=== PATIENT | female | born 1945 | race Caucasian/White ===

== ENCOUNTER 2020-11-21 14:32 | Observation (INO) ==
[2020-11-21] MEDS ORDERED: 0.9 % Sodium Chloride 1,000 ML IVC SCH ×2 (15:45→18:30)
[2020-11-21 15:54] LABS: Albumin 4.4 g/dL (3.5-5.7); Albumin/Globulin Ratio 1.5 (1.1-2.2); Bilirubin,Total 0.5 mg/dL (0.3-1.0); Calcium 10.3 mg/dL (8.6-10.3); Potassium 6.3 mEq/L (3.5-5.1); Total Protein 7.4 g/dL (6.4-8.9)
[2020-11-21 15:59] LABS: Basophils # 0.1 K/mcL (0.0-0.2); Basophils % 0.6 %; Eosinophils # 0.2 K/mcL (0.0-0.6); Eosinophils % 2.6 %; Hematocrit 34.4 % (35.3-44.9); Immature Granulocytes % 0.3 % (0-4); Lymphocytes # 1.9 K/mcL (0.6-4.6); Lymphocytes % 24.4 %; Mean Corpuscular Hemoglobin 29.8 pg (28.0-33.3); Mean Corpuscular Volume 93.2 fL (83.0-100.0); Monocytes # 0.6 K/mcL (0.0-1.3); Platelet Count 277 K/mcL (140-400); Red Blood Count 3.69 M/mcL (3.82-4.97); Red Cell Distribution Width 12.3 % (11.5-14.5); Segmented Neutrophils % 64.1 %; White Blood Count 7.8 K/mcL (4.3-11.1)
[2020-11-21 16:03] LABS: INR 1.1; Prothrombin Time 11.8 Seconds (9.4-12.1)
[2020-11-21 16:06] LABS: Bilirubin,Urine Negative (Negative); Blood,Urine Negative (Negative); Clarity,Urine Clear (Clear); Color,Urine Yellow (Yellow); Glucose,Urine (UA) Normal (Normal); Ketones,Urine Negative (Negative); Leukocyte Esterase,Urine Negative (Negative); Nitrite,Urine Negative (Negative); Protein,Urine Negative (Neg-Trace); Specific Gravity,Urine 1.015 (1.010-1.025); Urobilinogen,Urine Normal (Normal)
[2020-11-21 16:22] LABS: VBG HCO3 15 mEq/L (21-27); VBG PCO2 31 mmHg (41-51); VBG PO2 78 mmHg (25-50)
[2020-11-21] MEDS ORDERED: levoFLOXacin 750 MG/150 ML 750 MG/150 ML BAG IVPB ONE (17:16)
[2020-11-21] MEDS ORDERED: *HR* Dextrose 50 % in Water (Syg) 50 ML SYRINGE IVP ONE (17:18)
[2020-11-21] MEDS ORDERED: Insulin Human Regular 10 UNIT in 0.9 % Sodium Chloride 10 ML IV ONE (17:18)
[2020-11-21] MEDS ORDERED: Albuterol 2.5 MG/3 ML NEBULIZER IH ONE (17:18)
[2020-11-21] MEDS ORDERED: MOM Conc 10 ML UD.LIQ PO PRN (18:02)
[2020-11-21] MEDS ORDERED: Mag Hydrox/Al Hydrox/Simeth 30 ML UDC PO PRN (18:02)
[2020-11-21] MEDS ORDERED: Ondansetron ODT 4 MG TAB.RAPDIS SL PRN (18:02)
[2020-11-21] MEDS ORDERED: Naloxone 0.4 MG/ML INJ IVP PRN (18:02)
[2020-11-21] MEDS ORDERED: Acetaminophen 325 MG TABLET PO PRN (18:02)
[2020-11-21] MEDS ORDERED: Ondansetron 4 MG/2 ML VIAL IVP PRN (18:02)
[2020-11-21] MEDS ORDERED: Melatonin 3 MG TABLET PO PRN (18:02)
[2020-11-21] MEDS ORDERED: Sodium Bicarbonate 50 MEQ in 0.45 % Sodium Chloride 1,000 ML IVC SCH ×2 (19:15→23:00)
[2020-11-21] MEDS: Azithromycin 500 MG in 0.9 % Sodium Chloride 250 ML IVPB SCH (20:37)
[2020-11-21] MEDS: cefTRIAXone 1,000 MG in Water for inj. (sterile) 10 ML IVP SCH (20:38)
[2020-11-21 22:15] LABS: Calcium 8.8 mg/dL (8.6-10.3); Potassium 5.1 mEq/L (3.5-5.1)
[2020-11-22 05:55] LABS: Hematocrit 29.3 % (35.3-44.9); Hemoglobin 9.4 g/dL (11.5-15.4); Mean Corpuscular HGB Conc 32.1 g/dL (31.6-35.5); Mean Corpuscular Hemoglobin 29.8 pg (28.0-33.3); Mean Platelet Volume 9.8 fL (9.4-12.4); Platelet Count 200 K/mcL (140-400); Red Blood Count 3.15 M/mcL (3.82-4.97); Red Cell Distribution Width 12.2 % (11.5-14.5); White Blood Count 5.6 K/mcL (4.3-11.1)
[2020-11-22] MEDS ORDERED: *HR* Enoxaparin 40 MG/0.4 ML SYRINGE SQ SCH (06:00)
[2020-11-22 06:19] LABS: Albumin 3.4 g/dL (3.5-5.7); Albumin/Globulin Ratio 1.6 (1.1-2.2); Bilirubin,Total 0.3 mg/dL (0.3-1.0); Calcium 8.3 mg/dL (8.6-10.3); Globulin 2.1 g/dL (2.4-3.5); Magnesium 1.7 mg/dL (1.6-2.6); Phosphorous 3.6 mg/dL (2.7-4.5); Total Protein 5.5 g/dL (6.4-8.9)
[2020-11-22] MEDS ORDERED: Patient Taking Own Medication 1 EACH PO SCH (09:00)
[2020-11-22] MEDS: amLODIPine 5 MG TABLET PO SCH (09:25)
[2020-11-22] MEDS: Aspirin Enteric Coated 81 MG Tablet PO SCH (09:25)
[2020-11-22] MEDS: rOPINIRole 0.25 MG TABLET PO SCH (09:26)
[2020-11-22] MEDS: cefTRIAXone 1,000 MG in Water for inj. (sterile) 10 ML IVP SCH (09:26)
[2020-11-22] MEDS: Ubidecarenone [Coq10] 50 MG PO SCH (09:28)
[2020-11-22] MEDS: Omega-3 Fatty Acids [Fish Oil] 300 MG PO SCH ×2 (09:28→17:43)
[2020-11-22] MEDS: Mirabegron [Myrbetriq] 50 MG PO SCH ×2 (09:28→17:45)
[2020-11-22] MEDS ORDERED: [UNRECOGNIZED DRUG - OTHER] TP PRN (12:07)
[2020-11-22] MEDS: Azithromycin 500 MG in 0.9 % Sodium Chloride 250 ML IVPB SCH (17:41)
[2020-11-23 05:04] VITALS: RESP 16
[2020-11-23] MEDS ORDERED: *HR* Enoxaparin 30 MG/0.3 ML SYRINGE SQ SCH (06:00)
[2020-11-23 06:59] LABS: Mean Corpuscular HGB Conc 32.3 g/dL (31.6-35.5); Mean Corpuscular Hemoglobin 30.1 pg (28.0-33.3); Mean Corpuscular Volume 93.4 fL (83.0-100.0); Mean Platelet Volume 9.9 fL (9.4-12.4); Platelet Count 205 K/mcL (140-400); Red Blood Count 3.32 M/mcL (3.82-4.97); Red Cell Distribution Width 12.3 % (11.5-14.5); White Blood Count 5.9 K/mcL (4.3-11.1)
[2020-11-23 07:29] LABS: Albumin 3.4 g/dL (3.5-5.7); Albumin/Globulin Ratio 1.5 (1.1-2.2); Bilirubin,Total 0.4 mg/dL (0.3-1.0); Calcium 8.9 mg/dL (8.6-10.3); Globulin 2.3 g/dL (2.4-3.5); Magnesium 1.6 mg/dL (1.6-2.6); Potassium 4.4 mEq/L (3.5-5.1); Total Protein 5.7 g/dL (6.4-8.9)
[2020-11-23] MEDS ORDERED: Febuxostat [Uloric] 40 MG Tablet PO SCH (09:00)
[2020-11-23] MEDS: amLODIPine 5 MG TABLET PO SCH (10:46)
[2020-11-23] MEDS: Aspirin Enteric Coated 81 MG Tablet PO SCH (10:46)
[2020-11-23] MEDS: Omega-3 Fatty Acids [Fish Oil] 300 MG PO SCH (10:47)
[2020-11-23] MEDS: rOPINIRole 0.25 MG TABLET PO SCH (10:47)
[2020-11-23] MEDS: Mirabegron [Myrbetriq] 50 MG PO SCH (10:48)
[2020-11-23] MEDS: Ubidecarenone [Coq10] 50 MG PO SCH (10:48)
[2020-11-23] MEDS: cefTRIAXone 1,000 MG in Water for inj. (sterile) 10 ML IVP SCH (10:55)
[2020-11-23 12:03] VITALS: BP 148/54; PULSE 59; TEMP 99.4; O2SAT 96
== END 2020-11-23 12:30 | disposition home or self-care (01) ==
LOC: EMEROOGRE 14:32 → INPGRE 14:32
PROVIDERS: ADMIT Family Medicine; ATTEND Family Medicine